=== PATIENT | male | born 1970 | race Caucasian/White ===

== ENCOUNTER → 2022-11-18 | Outpatient (CLI) | payer OTHER ==
[~2022-11-18] MED LIST: Benadryl A12.5 MG/5 PO; CETI5 PO; Cialis20 MG PO; IBUP600 PO; LISHYD2025 PO; Zestril40 MG PO
== END | disposition home or self-care (01) ==
LOC: LAB SHORT 10:21 → PLD 10:21
DX: D48.5 Neoplasm of uncertain behavior of skin (principal)
CPT/HCPCS: 88305